=== PATIENT | male | born 1985 | race Caucasian/White ===

== ENCOUNTER 2024-08-12 19:49 | Emergency (ER) | payer SELFPAY ==
[2024-08-12 19:55] VITALS: BP 126/92; PULSE 111; TEMP 36.7; O2SAT 98; BMI 41.4
--- NOTE | 2024-08-12 20:37 | ED_ITS ---
HPI HPI - General Adult General Chief complaint: Skin/Abscess/Foreign Body Stated complaint: CHEST, ABDOMIN AND BACK PAIN Time Seen by Provider: 08/12/24 19:53 Source: patient Mode of arrival: walk-in Limitations: no limitations History of Present Illness HPI narrative: 38-year-old male to the emergency department chief complaint of rash. Patient reports that over the last 2 days he has had a rash pop up that extends from his back along his side into his chest just below the breast. The rash is painful. He has never had anything like this before. He is otherwise asymptomatic. No recent illness. Related Data Previous Rx's ?Medication ?Instructions ?Recorded lidocaine 5 % topical patch See Rx Instructions topica l 08/12/24 (Lidoderm) .COMPLEX #15 ea valacyclovir 1 gram tablet 1,000 mg PO TID 7 days #21 tabs 08/12/24 (Valtrex) Allergies Allergy/AdvReac Type Severity Reaction Status Date / Time amoxicillin AdvReac Intermediate Unknown Verified 08/12/24 20:03 Opioid HPI Opioid Management Most Recent Opioid Data: Last Pain Scale 4 Today, 19:55 Review of Systems ROS Status of ROS 10 or more systems reviewed and unremark able except as noted in history and below PFSH PFSH Social History Little interest or pleasure in doing things: not at all Feeling down, depressed, or hopeless: not at all Exam Narrative Exam Narrative: VITALS: I have reviewed the triage vital signs. GENERAL: Well developed, well appearing adult in no acute distress. NEURO: Alert and oriented. Moves all extremities. Face is symmetric and expressive. EYES: PERRL. No scleral icterus or conjunctival injection. No discharge. HENT: Normocephalic, atraumatic. Hearing is grossly intact. Nares grossly patent and without discharge. Mucous membranes moist. NECK: No JVD. Patient moves neck without restriction. CARDIO: Rhythm regular. Normal rate. No murmur, rub, or gallop. Pulses equal bilaterally in the upper and lower extremity. No lower extremity edema. Erythematous rash with vesicles extending across the dermatome on the right from the paraspinal region to the anterior chest. PULM: Lungs clear to auscultation in all delvalle. No wheezes, rales, or rhonchi. No conversational dyspnea. No splinting, stridor, or accessory muscle use. EXTREMITIES: Symmetric muscle bulk. No joint swelling. No clubbing, cyanosis, or deformity. SKIN: Warm and dry. Normal turgor. No rash or lesions appreciated. PSYCH: Mood, affect, and interaction is appropriate to the setting. Constitutional Vital Signs, click to edit/add: Last Vital Signs Temp 98.0 F 08/12/24 19:55 Pulse 111 H 08/12/24 19:55 Resp 18 08/12/24 19:55 BP 126/92 H 08/12/24 19:55 Pulse Ox 98 08/12/24 19:55 O2 Del Method Room Air 08/12/24 19:55 Course Vital Signs Vital signs: Vital Signs Temperature 98.0 F 08/12/24 19:55 Pulse Rate 111 H 08/12/24 19:55 Respiratory Rate 18 08/12/24 19:55 Blood Pressure 126/92 H 08/12/24 19:55 Pulse Oximetry 98 08/12/24 19:55 Oxygen Delivery Method Room Air 08/12/24 19:55 Temperature 98.0 F 08/12/24 19:55 Pulse Rate 111 H 08/12/24 19:55 Respiratory Rate 18 08/12/24 19:55 Blood Pressure 126/92 H 08/12/24 19:55 Pulse Oximetry 98 08/12/24 19:55 Oxygen Delivery Method Room Air 08/12/24 19:55 Medical Decision Making MDM Narrative Medical decision making narrative: 38-year-old male to the emergency department chief complaint of painful rash. Vital stable, the patient is afebrile. Patient has obvious shingles on exam. Discussed expected clinical course. Lidoderm and valacyclovir were prescribed. He will take pain medication at home. Return precautions were discussed. All questions were answered. The patient was discharged home. Medical Records Medical records reviewed: Yes I reviewed the patient's medical records Discharge Plan Discharge Chief Complaint: Skin/Abscess/Foreign Body Clinical Impression: Herpes zoster Patient Disposition: Home, Self-Care Time of Disposition Decision: 20:37 Condition: Good Mode of Transportation: Private Vehicle Prescriptions / Home Meds: New valacyclovir [Valtrex] 1 gram tablet 1,000 mg PO TID 7 Days Qty: 21 0RF lidocaine [Lidoderm] 5 % adhesive patch,medicated See Rx Instructions topical .COMPLEX Qty: 15 0RF Rx Instructions: leave on most painful area for up to 12 hrs Print Language: Chadian Instructions: Shingles (ED) Additional Instructions: Call the office of your primary care doctor to arrange for follow-up within the above-stated timeframe. Your ED visit was focused on your acute issue and does not replace primary care. You should review your labs, imaging, and diagnoses from this ED visit with your primary care physician. There may be non-emergent/ incidental findings that need further evaluation. You should review your vital signs including blood pressure with your PCP. If you were prescribed medications you should discuss possible side-effects and drug interactions with your pharmacist. Call 911 or go to the nearest Emergency Department if you develop any new or worsening symptoms. Referrals: SAMMY HARTMAN [Primary Care Provider, Unknown] - 1 week
[2024-08-12] MEDS: LIDOCAINE 5% PATCH 1 PATCH TOPICAL (20:51)
== END 2024-08-12 21:03 | disposition home or self-care (01) ==
PROVIDERS: Emergency Provider Student in an Organized Health Care Education/Training Program; PCP Nurse Practitioner Family
DX: B02.9 Zoster without complications (principal)
CPT/HCPCS: 99283